=== PATIENT | female | born 1995 | race Caucasian/White ===

== ENCOUNTER 2018-04-21 04:03 | Inpatient (IN) | payer BC, MEDICAID ==
[2018-04-21 05:08] LABS: APPEARANCE,URINE SLIGHTLY-CLOUDY; BILIRUBIN,URINE NEGATIVE (NEGATIVE); COLOR,URINE YELLOW; GLUCOSE, URINE NEGATIVE (NEGATIVE); KETONES,URINE NEGATIVE (NEGATIVE); LEUKOCYTE ESTERASE,URINE NEGATIVE (NEGATIVE); NITRITE,URINE NEGATIVE (NEGATIVE); PROTEIN,URINE NEGATIVE (NEGATIVE); URINE SPECIFIC GRAVITY 1.012; UROBILINOGEN,URINE NEGATIVE mg/dL (<2.0)
[2018-04-21] MEDS ORDERED: RINGERS SOLUTION,LACTATED 1,000 ML IV PRN (05:14)
[2018-04-21] MEDS ORDERED: RINGERS SOLUTION,LACTATED 1,000 ML IV ONE (05:20)
[2018-04-21 05:22] LABS: URINE AMPHETAMINES SCREEN NEGATIVE; URINE BARBITURATES SCREEN NEGATIVE; URINE BENZODIAZEPINES SCREEN NEGATIVE; URINE COCAINE SCREEN NEGATIVE; URINE METHADONE SCREEN NEGATIVE; URINE PHENCYCLIDINE SCREEN NEGATIVE
[2018-04-21] MEDS ORDERED: PHENYLEPHRINE HCL INJ/PF 10 MG/1 ML SDV ONE (05:45)
[2018-04-21] MEDS ORDERED: FENTANYL CITRATE INJ/PF 100 MCG/2 ML AMPUL ONE (05:45)
[2018-04-21] MEDS ORDERED: EPHEDRINE SULFATE INJ 50 MG/1 ML AMPULE ONE (05:45)
[2018-04-21] MEDS ORDERED: BUPIVACAINE HCL 0.5 % INJ/PF 30 ML SDV ONE (05:46)
[2018-04-21] MEDS ORDERED: FENTANYL/BUPIVACAINE/NS/PF 200 MCG/100 ML RTUINJ EPI ONE (05:48)
[2018-04-21 05:52] LABS: HEMATOCRIT 37.1 % (36.0-47.0); HEMOGLOBIN 12.9 g/dL (12.0-15.5); MEAN CORPUSCULAR HEMOGLOBIN 30.7 pg (27.0-33.4); MEAN CORPUSCULAR HGB CONC 34.8 g/dL (32.0-36.0); MEAN CORPUSCULAR VOLUME 88 fl (80-97); PLATELET COUNT 102 10^3/uL (150-450); RED CELL DISTRIBUTION WIDTH 12.8 % (11.5-14.0); WHITE BLOOD COUNT 21.6 10^3/uL (4.0-10.5)
[2018-04-21 06:12] LABS: URINE MARIJUANA (THC) SCREEN NEGATIVE
[2018-04-21 06:14] LABS: ABSOLUTE LYMPHOCYTES# (MANUAL) 3.7 10^3/uL (0.5-4.7); ABSOLUTE MONOCYTES # (MANUAL) 1.3 10^3/uL (0.1-1.4); ABSOLUTE NEUTROPHILS# (MANUAL) 16.6 10^3/uL (1.7-8.2); BAND NEUTROPHILS % (MANUAL) 2 % (3-5); BASOPHILS % (MANUAL) 0 % (0-2); EOSINOPHILS % (MANUAL) 0 % (0-6); LYMPHOCYTES % (MANUAL) 17 % (13-45); MONOCYTES % (MANUAL) 6 % (3-13); SEGMENTED NEUTROPHILS % (MAN) 75 % (42-78); TOTAL CELLS COUNTED 100
[2018-04-21 06:15] LABS: PLATELET COMMENT ADEQUATE
[2018-04-21] MEDS ORDERED: MISOPROSTOL 0.2 MG TABLET PR PRN (07:23)
[2018-04-21] MEDS ORDERED: OXYTOCIN/NORMAL SALINE 20 UNIT/1,000 ML RTUINJ IV PRN ×2 (07:23→16:01)
[2018-04-21] MEDS ORDERED: LIDOCAINE 1% INJ-PF (10 MG/ML) 30 ML SDV INJ PRN (07:23)
--- NOTE | 2018-04-21 07:31 | Admission Physical ---
Datetime Report Generated by CPN: 04/21/2018 07:30 CURRENT ADMISSION Chief Complaint: Uterine Contractions Admit Impression : Term, Intrauterine ; Active Labor Admit Plan: Admit to Unit ALLERGIES Medication Allergies: No Medication Allergies: No Known Allergies (04/21/2018) OBSTETRICAL HISTORY EDC: 05/15/2018 00:00 : 1 Para: 0 Gestational Diabetes: No Rh Sensitization: No Incompetent Cervix: No CARLA: No Infertility: No ART Treatment: No Uterine Anomaly: No IUGR: No Hx Previous C/S: No Macrosomia: No Hx Loss/Stillborn: No PIH: No Hx : No Placenta Previa/Abruption: No Depression/PP Depression: No PTL/PROM: No Post Hemorrhage: No SEE RECORDS Alcohol: No Marijuana : No Cocaine: No Other Illicit Drugs: No Cigarettes: Former Smoker. [id number] MEDICAL HISTORY Diabetes: No Blood Transfusion: No Pulmonary Disease (Asthma, TB): No Breast Disease: No Hypertension: No Cloud Developer Surgery: No Heart Disease: No Hosp/Surgery: No Autoimmune Disorder: No Anesthetic Complications: No Kidney Disease: No Abnormal Pap Smear: No Neuro/Epilepsy: No Psychiatric Disorders: No Other Medical Diseases: No Hepatitis/Liver Disease: No Significant Family History: No Varicosities/Phlebitis: No Trauma/Violence : No Thyroid Dysfunction: No INFECTIOUS HISTORY Gonorrhea: No Genital Herpes: No Chlamydia: Yes Tuberculosis: No Syphilis: No Hepatitis: No HIV/AIDS Exposure: No Rash or Viral Illness: No HPV: Yes Infectious History Comments: chlamydia, HPV with condyloma PHYSICAL EXAM General: Normal HEENT: Normal Neurologic: Normal Thyroid: Normal Heart: Normal Lungs: Normal Breast: Normal Back: Normal Abdomen: Normal Genitourinary Exam: Normal Extremities: Normal DTRs: Normal Pelvic Type: Adequate Vital Signs: Reviewed VAGINAL EXAM Dilatation: 6 Effacement: 90 Station: -1 Contraction Comments: 2-3 min MEMBRANES Membranes: Intact FETUS A EGA: 36.4 Monitoring: External US FHR- Baseline: 150 Variability: Moderate 6-25bpm Accelerations: 15X15 Decelerations: None Estimated Weight (gm): 3700 Presentation: Vertex Admit Comment: Active labor - Expect vaginal delivery PLANS FOR LABOR AND DELIVERY Labor and Delivery: Plan Pain Management: Epidural Feeding Preference: Breast Benefit of Breast Feed Discussed: Yes Circumcision: N/A INFORMED CONSENT Signature: with User ID: [email or web address] : I personally evaluated and examined the patient in conjunction with the MLP and agree with the assessment, treatment plan and disposition.
[2018-04-21] MEDS: PRENATAL VITAMIN W DHA CAPSULE PO SCH (12:52)
[2018-04-21] MEDS ORDERED: PROMETHAZINE HCL 25 MG TABLET PO PRN (16:01)
[2018-04-21] MEDS ORDERED: MEASLES,MUMPS&RUBELLA VACC/PF 0.5 ML VIAL SUBCUT PRN (16:01)
[2018-04-21] MEDS ORDERED: DIBUCAINE 1% OINTMENT 28 GM TP PRN (16:01)
[2018-04-21] MEDS ORDERED: ACETAMINOPHEN 650 MG SUPP.RECT PR PRN (16:01)
[2018-04-21] MEDS ORDERED: DIPHENHYDRAMINE HCL 25 MG CAPSULE PO PRN (16:01)
[2018-04-21] MEDS ORDERED: DIPH/PERTUSS(ACELL)/TETANUS VAC/PF 0.5 ML SYR (>=10YO) IM PRN (16:01)
[2018-04-21] MEDS ORDERED: BENZOCAINE/MENTHOL AEROSOL SPRAY 56 ML TOP PRN (16:01)
[2018-04-21] MEDS ORDERED: ACETAMINOPHEN WITH CODEINE #3 TABLET PO PRN ×2 (16:01)
[2018-04-21] MEDS ORDERED: GLYCERIN/WITCH HAZEL LEAF 1 EACH MED..PAD TP PRN (16:01)
[2018-04-21] MEDS ORDERED: PROMETHAZINE HCL 25 MG SUPP.RECT PR PRN (16:01)
[2018-04-21] MEDS ORDERED: NA PHOS,M-B/NA PHOS,DI-BA (ADULT) 133 ML ENEMA PR PRN (16:01)
[2018-04-21] MEDS ORDERED: MAGNESIUM HYDROXIDE SUSP 30 ML UDCUP PO PRN (16:01)
[2018-04-21] MEDS ORDERED: PROMETHAZINE HCL INJ 25 MG/1 ML VIAL IV PRN (16:01)
[2018-04-21] MEDS ORDERED: ZOLPIDEM TARTRATE 5 MG TABLET PO PRN (16:01)
[2018-04-21] MEDS ORDERED: PSEUDOEPHEDRINE HCL 30 MG TABLET PO PRN (16:01)
--- NOTE | 2018-04-21 16:44 | Warning Signs in Babies ---
VOD Warning Signs Datetime Report Generated by [facility]: 04/21/2018 16:44 VOD#608 -Warning Signs in Babies: Needs to be viewed. (04/21/2018 04:07:Meeta Dos Santos RN)
--- NOTE | 2018-04-21 17:46 | Delivery Summary ---
Del Sum A-C Datetime Report Generated by CPN: 04/21/2018 17:46 DELIVERY PERSONNEL DELIVERY PERSONNEL: [id number] Delivery Doctor:: Radha Canada MD Labor and Delivery Nurse:: Meeta Dos Santos RNgenetic physician Nurse:: Rosemary Arteaga RN Wastewater Supervisor/COLLECTIONS ATTORNEY: Vivienne Moralesaneda Wastewater Supervisor/COLLECTIONS ATTORNEY: [facility] Additional Personnel: : Ce Ochoa RN MATERNAL INFORMATION Delivery Anesthesia: Epidural Medications After Delivery: Other-Please Comment Meds After Delivery Comment: Cytotec 1000 mcg PV Estimated Blood Loss (ml): 200 Maternal Complications: Prolonged Second Stage > 2 Hrs Provider Comments: Kiwi vaccuum applied to green x 3 w/ 3 PO. Fetus delivered within two contractions afterwards. LABOR SUMMARY EDC: 05/15/2018 00:00 No. Babies in Womb: 1 Attempted: No Labor Anesthesia: Epidural LABOR INFORMATION Reason for Induction: Not Applicable Onset of Labor: 04/21/2018 04:00 Complete Dilatation: 04/21/2018 10:24 Cervical Ripening Agents: Cytotec @ 1000 mcg PV Oxytocin: N/A Group B Beta Strep: negative Antibiotics # of Doses: 0 Steroids Given: None Reason Steroids Not Administered: Not Applicable MEMBRANES Membranes Rupture Method: Spontaneous Rupture of Membranes: 04/21/2018 02:00 Length of Rupture (hr): 13.57 Amniotic Fluid Color: Clear Amniotic Fluid Amount: Small Amniotic Fluid Odor: Normal STAGES OF LABOR Stage 1 hr: 6 Stage 1 min: 24 Stage 2 hr: 5 Stage 2 min: 10 Stage 3 hr: 0 Stage 3 min: 5 Total Time in Labor hr: 11 Total Time in Labor min: 39 VAGINAL DELIVERY Episiotomy: None Laceration #1: Vaginal Laceration Extension #1: First Degree Laceration Repair: Yes Laceration Repair Note: 2-0 chromic running stitch in normal fashion Sponge Count Correct: N/A Sharps Count Correct: N/A CSECTION DELIVERY Primary Indication: N/A Other Primary Indication: n/a Secondary Indication: N/A CSection Urgency: n/a CSection Incidence: N/A Labor: N/A Elective: N/A CSection Incision: N/A BABY A INFORMATION Infant Delivery Date/Time: 04/21/2018 15:34 Method of Delivery: Vaginal Born in Route : No : N/A Forceps: N/A Vacuum Extraction: Successful Shoulder Dystocia : No PRESENTATION/POSITION BABY A Presentation: Cephalic Cephalic Presentation: Vertex Vertex Position: Left Occipital Anterior Breech Presentation: N/A PLACENTA INFORMATION BABY A Placenta Delivery Time : 04/21/2018 15:39 Placenta Method of Delivery: Manual Removal Placenta Status: Delivered SCORES BABY A Heart Rate 1 min: >100 bpm Resp Effort 1 min: Slow, Irregular Reflex Irritability 1 min: Cough or Sneeze or Pulls Away Muscle Tone 1 min: Active Motion Color 1 min: Body [place], Extremities Blue Resuscitation Effort 1 min: Tactile Stimulation SCORE 1 MIN: 8 Heart Rate 5 min: >100 bpm Resp Effort 5 min: Good Cry Reflex Irritability 5 min: Cough or Sneeze or Pulls Away Muscle Tone 5 min: Active Motion Color 5 min: Body [place], Extremities Blue SCORE 5 MIN: 9 INFORMATION BABY A Gestational Age at Delivery: 36.4 Gestational Status: Late - 34- 36.6 Weeks Infant Outcome : Liveborn Condition : Stable Infant Sex: Female IDENTIFICATION BABY A Verification Date/Time: 04/21/2018 16:41 ID Band Number: [id number] Mother's Name Verified: Yes Infant RN Verifying : Carol Dos Santos RN Additional Verifying Personnel: Rozina Sanchez RN WEIGHT/LENGTH BABY A Infant Birthweight (gm): 3200 Infant Weight (lb): 7 Infant Weight (oz): 1 Infant Length (in): 20.50 Infant Length (cm): 52.07 CORD INFORMATION BABY A No. Cord Vessels: 3 Nuchal Cord : N/A Cord Blood Taken: Yes-For Storage (Mom's Blood type +) Infant Suction: None; Mouth ASSESSMENT BABY A Infant Complications: None Physical Findings at Delivery: Within Normal Limits Infant Respirations: Appears Normal Skin to Skin: Yes Chief Orthoptist/ALS Called : No Care By: B. Baidy RN Transferred To: Remains with Mother BABY B INFORMATION : N/A SIGNATURES Signature: with User ID: [email or web address] : I was personally available for consultation and serving as supervising physician for the MLP. : I personally evaluated and examined the patient in conjunction with the MLP and agree with the assessment, treatment plan and disposition.
[2018-04-21] MEDS: FERROUS SULFATE 325 MG TABLET PO SCH (19:21)
[2018-04-21] MEDS: DOCUSATE SODIUM 100 MG CAPSULE PO SCH (19:21)
[2018-04-21] MEDS: IBUPROFEN 800 MG TABLET PO SCH (21:47)
[2018-04-21] MEDS: FAMOTIDINE 20 MG TABLET PO SCH (21:48)
[2018-04-22] MEDS: IBUPROFEN 800 MG TABLET PO SCH ×3 (06:07→22:10)
[2018-04-22 07:10] LABS: HEMATOCRIT 34.9 % (36.0-47.0); HEMOGLOBIN 12.1 g/dL (12.0-15.5); MEAN CORPUSCULAR HEMOGLOBIN 31.1 pg (27.0-33.4); MEAN CORPUSCULAR HGB CONC 34.8 g/dL (32.0-36.0); MEAN CORPUSCULAR VOLUME 89 fl (80-97); PLATELET COUNT 100 10^3/uL (150-450); RED CELL DISTRIBUTION WIDTH 13.1 % (11.5-14.0)
[2018-04-22] MEDS: FAMOTIDINE 20 MG TABLET PO SCH ×2 (10:44→22:10)
[2018-04-22] MEDS: DOCUSATE SODIUM 100 MG CAPSULE PO SCH ×2 (10:44→17:45)
[2018-04-22] MEDS: FERROUS SULFATE 325 MG TABLET PO SCH ×2 (10:45→17:45)
[2018-04-22] MEDS: SENNOSIDES/DOCUSATE 8.6-50 MG 1 EACH TABLET PO SCH (10:45)
[2018-04-22] MEDS: PRENATAL VITAMIN W DHA CAPSULE PO SCH ×2 (10:45→10:46)
--- NOTE | 2018-04-22 11:29 | PDOC PROGRESS REPORT ---
Subjective-OB Progress Note for:: 04/22/18 Subjective: Doing well, no c/o, family at BS, baby doing well, voiding, eating well, scant bleeding Physical Exam (OB) Vital Signs: Temp Pulse Resp BP Pulse Ox 98.1 F 70 16 100/66 99 04/22/18 08:38 04/22/18 08:38 04/22/18 08:38 04/22/18 08:38 04/22/18 08:38 Intake & Output 04/21/18 04/22/18 04/23/18 06:59 06:59 06:59 Intake Total 300 1000 Balance 300 1000 Weight 86.5 kg - PIH/Pre-Eclampsia DTR's: 2 + Clonus: Negative Headache: Absent Epigastric Pain: No Visual Changes: No - Lochia Lochia Amount: Scant < 10 ml Lochia Color: Rubra/Red - Abdomen Description: Soft, Flat Hernia Present: No Fundal Description: Firm, Midline Fundal Height: u/u - u/2 Objective-Diagnostic Laboratory: 04/22/18 06:44 04/22/18 06:44 WBC 17.0 H RBC 3.90 Hgb 12.1 Hct 34.9 L MCV 89 MCH 31.1 MCHC 34.8 RDW 13.1 Plt Count 100 L Assessment and Plan(PN) - Assessment and Plan (1) Depression Qualifiers: Trimester: unspecified trimester Is this a current diagnosis for this admission?: Yes (2) Delivery normal Is this a current diagnosis for this admission?: Yes - Time Spent with Patient Time with patient: Less than 15 minutes Medications reviewed and adjusted accordingly: Yes - Disposition Anticipated Discharge: Home Within: within 24 hours
[2018-04-23] MEDS: IBUPROFEN 800 MG TABLET PO SCH ×2 (06:04→14:08)
[2018-04-23] MEDS: PRENATAL VITAMIN W DHA CAPSULE PO SCH ×2 (09:42→09:43)
[2018-04-23] MEDS: SENNOSIDES/DOCUSATE 8.6-50 MG 1 EACH TABLET PO SCH (09:42)
[2018-04-23] MEDS: DOCUSATE SODIUM 100 MG CAPSULE PO SCH (09:42)
[2018-04-23] MEDS: FERROUS SULFATE 325 MG TABLET PO SCH (09:42)
[2018-04-23] MEDS: FAMOTIDINE 20 MG TABLET PO SCH (09:43)
[2018-04-23 10:09] VITALS: BP 119/73
--- NOTE | 2018-04-23 13:18 | PDOC DISCHARGE SUMMARY ---
Final Diagnosis Discharge Date: 04/23/18 - Final Diagnosis (1) Depression Is this a current diagnosis for this admission?: Yes (2) Delivery normal Is this a current diagnosis for this admission?: Yes (3) delivery Is this a current diagnosis for this admission?: Yes Discharge Data - Discharge Medication Prescriptions: Ibuprofen [Motrin 800 mg Tablet] 800 mg PO Q8HP PRN #30 tablet PRN Reason: Abdominal Cramping Home Medications: Vit/Iron Fum/Folic AC [ Tablet] 1 tab PO DAILY 04/21/18 Ibuprofen [Motrin 800 mg Tablet] 800 mg PO Q8HP PRN #30 tablet 04/23/18 Reason(s) for Admission: Onset of Labor Procedures: Ultrasound Intrapartum Procedure(s): Spontaneous Vaginal Delivery Laceration-Degree: 1st - Diagnosis Test Laboratory: Temp Pulse Resp BP Pulse Ox 97.7 F 63 18 119/73 99 04/23/18 10:20 04/23/18 10:20 04/23/18 10:20 04/23/18 10:20 04/23/18 10:20 04/21/18 04/21/18 04/22/18 04:20 05:30 06:44 RBC 4.20 3.90 Hgb 12.9 12.1 Hct 37.1 34.9 L Urine Opiates Screen NEGATIVE - Discharge information/Instructions Discharge Activity: Activity As Tolerated, Balance Activity w/Rest, No Lifting Over 10 Pounds, Pelvic Rest, No tub bath, Walk Frequently Discharge Diet: As Tolerated Disposition: HOME, SELF-CARE Follow up with: [facility] in: 1, Weeks - hx of depression pp
== END 2018-04-23 17:36 | disposition home or self-care (01) | DRG 775 ==
LOC: LC 04:03 → LR 05:14 → 2S 18:30
PROVIDERS: ADMIT Obstetrics & Gynecology; ATTEND Obstetrics & Gynecology
PROC: 10D07Z6 Extraction of Products of Conception, Vacuum, Via Natural or Artificial Opening (ICD-10-PCS; principal; 2018-04-21)
PROC: 0HQ9XZZ Repair Perineum Skin, External Approach (ICD-10-PCS; 2018-04-21)
PROC: 4A1HXCZ Monitoring of Products of Conception, Cardiac Rate, External Approach (ICD-10-PCS; 2018-04-21)
DX: O99.345 Other mental disorders complicating the puerperium (principal); O60.14X0 Preterm labor third trimester with preterm delivery third trimester, not applicable or unspecified; O70.0 First degree perineal laceration during delivery; F31.9 Bipolar disorder, unspecified; O63.1 Prolonged second stage (of labor); Z3A.36 36 weeks gestation of pregnancy; Z37.0 Single live birth; Z87.891 Personal history of nicotine dependence; Z86.19 Personal history of other infectious and parasitic diseases
CPT/HCPCS: 36415; 80307; 81001; 85025; 85027; 86592; 86850; 86900; 86901; J2370; J3010; J3490